=== PATIENT | female | born 2000 ===

== ENCOUNTER 2022-05-15 10:04 | Outpatient (RCR) | payer BC, SELFPAY ==
--- NOTE | 2022-05-15 10:00 | HOLTER_ITS ---
APPROVED REPORT Conclusion This is a Holter monitor ordered for palpitations Recording lasted 8 hours and 26 minutes Rhythm throughout was sinus with an average heart rate of 94. Minimum was 82, maximum 111 There were no significant dysrhythmias recorded There were no apparent patient symptoms
== END 2022-06-03 23:59 | disposition home or self-care (01) ==
LOC: CARDOPNVT 10:04
PROVIDERS: PCP Nurse Practitioner Family; Visit Provider Nurse Practitioner Family
DX: R00.2 Palpitations (principal)
CPT/HCPCS: 93225; 93226

== ENCOUNTER 2023-06-12 14:47 | Outpatient (REF) | payer BC, SELFPAY ==
[2023-06-12 15:58] LABS: HCG Quant, Pregnancy < 1 mIU/mL (1-3)
== END 2023-06-12 14:48 | disposition home or self-care (01) ==
LOC: NCHCN 14:47
PROVIDERS: PCP Nurse Practitioner Family; Visit Provider Physician Assistant
DX: N92.5 Other specified irregular menstruation (principal)
CPT/HCPCS: 84702

== ENCOUNTER 2023-07-02 14:58 | Outpatient (REF) | payer BC, SELFPAY ==
[2023-07-02 17:03] LABS: FREE T4 0.89 ng/dL (0.76-1.46); TSH 3.03 uIU/Ml (0.36-3.74)
[2023-07-02 22:14] LABS: FSH 6.4 mIU/mL (See Note); Prolactin 10.6 ng/mL (See Note)
== END 2023-07-02 14:59 | disposition home or self-care (01) ==
LOC: NCHCN 14:58
PROVIDERS: PCP Nurse Practitioner Family; Visit Provider Physician Assistant
DX: N91.2 Amenorrhea, unspecified (principal)
CPT/HCPCS: 83001; 84146; 84439; 84443

== ENCOUNTER 2023-12-04 18:50 | Outpatient (REF) | payer BC, SELFPAY ==
[2023-12-04 17:20] LABS: HCG Quant, Pregnancy 3 mIU/mL (1-3)
== END 2023-12-04 18:51 | disposition home or self-care (01) ==
LOC: NCHCN 18:50
PROVIDERS: Visit Provider Physician Assistant
DX: N92.5 Other specified irregular menstruation (principal)
CPT/HCPCS: 84702